=== PATIENT | female | born 1950 | race Caucasian/White ===

== ENCOUNTER 2018-01-01 14:51 | Emergency (ER) | payer OTHER, MEDICAID ==
[~2018-01-01] VITALS: Ht 154.9 cm; Wt 59.6 kg
[2018-01-01 15:03] VITALS: Ht 154.9 cm; Wt 59.6 kg
[2018-01-01 16:48] LABS: microscopic required? YES; urine erythrocyte 2+ (NEGATIVE)
[2018-01-01 17:13] LABS: CALCIUM 8.7 mg/dL (8.5-10.1); CARBON DIOXIDE 27.8 mmol/L (21-32); CHLORIDE SERUM 102 mmol/L (98-107); CREATININE SERUM 0.7 mg/dL (0.6-1.0); GFR1 > 60 mL/min; GLUCOSE SERUM 127 mg/dL (74-106); POTASSIUM SERUM 3.2 mmol/L (3.5-5.1); SODIUM SERUM 137 mmol/L (136-145)
[2018-01-01 17:18] LABS: ALBUMIN 4.1 g/dL (3.4-5.0); ALKALINE PHOSPHATASE 98 U/L (46-116); ALT/SGPT 18 U/L (14-59); AST/SGOT 21 U/L (15-37); BILIRUBIN TOTAL 0.5 mg/dL (0.20-1.00); LIPASE 174 IU/L (73-393); TOTAL PROTEIN, SERUM 8.4 g/dL (6.4-8.2)
[2018-01-01 17:45] VITALS: BP 128/85
[2018-01-01 17:59] LABS: BASOPHIL % 0.4 % (0-2); PLATELET COUNT 214 x10^3mcL (130-400); RED CELL DISTRIBUTION WIDTH 13.4 % (11.5-14.5)
== END 2018-01-01 18:45 | disposition home or self-care (01) ==
LOC: ED 14:51
PROVIDERS: Emergency Medicine
DX: N39.0 Urinary tract infection, site not specified (principal); K57.90 Diverticulosis of intestine, part unspecified, without perforation or abscess without bleeding; I10 Essential (primary) hypertension; Z98.890 Other specified postprocedural states
CPT/HCPCS: 36415

== ENCOUNTER 2018-07-25 15:21 | Emergency (ER) | payer OTHER, MEDICAID ==
[~2018-07-25] VITALS: Ht 154.9 cm; Wt 59.4 kg
[2018-07-25 15:36] VITALS: Ht 154.9 cm; Wt 59.4 kg
[2018-07-25 16:12] LABS: BASOPHIL % 0.3 % (0-2); PLATELET COUNT 206 x10^3mcL (130-400); RED CELL DISTRIBUTION WIDTH 13.6 % (11.5-14.5)
[2018-07-25 16:22] LABS: CALCIUM 8.9 mg/dL (8.5-10.1); CARBON DIOXIDE 29.5 mmol/L (21-32); CHLORIDE SERUM 101 mmol/L (98-107); CREATININE SERUM 0.6 mg/dL (0.6-1.0); GFR1 > 60 mL/min; GLUCOSE SERUM 132 mg/dL (74-106); POTASSIUM SERUM 3.5 mmol/L (3.5-5.1); SODIUM SERUM 139 mmol/L (136-145)
[2018-07-25 16:27] LABS: ALKALINE PHOSPHATASE 94 U/L (46-116); ALT/SGPT 20 U/L (14-59); AST/SGOT 16 U/L (15-37); BILIRUBIN TOTAL 0.5 mg/dL (0.20-1.00); TOTAL PROTEIN, SERUM 7.9 g/dL (6.4-8.2)
[2018-07-25 18:07] LABS: microscopic required? YES; urine erythrocyte 2+ (NEGATIVE)
[2018-07-25] MEDS ORDERED: ASPIR LOW81 MG PO (19:45)
[2018-07-25] MEDS ORDERED: BAYER ASPIRIN R81 MG PO (19:50)
[2018-07-25] MEDS ORDERED: OMEPRAZOLE40 M1 PO (19:50)
[2018-07-25] MEDS ORDERED: LIPI20 PO (19:51)
[2018-07-25] MEDS ORDERED: LOT10 PO (19:52)
[2018-07-25 20:19] VITALS: BP 152/92
== END 2018-07-25 20:19 | disposition short-term general hospital (02) ==
LOC: ED 15:21
PROVIDERS: Emergency Medicine
DX: R07.89 Other chest pain (principal); I10 Essential (primary) hypertension; R06.02 Shortness of breath; R42 Dizziness and giddiness; R00.2 Palpitations; M79.601 Pain in right arm; Z98.890 Other specified postprocedural states
CPT/HCPCS: 36415